=== PATIENT | female | born 1990 | race American Indian/Alaskan Native ===

== ENCOUNTER 2019-03-30 22:56 | Outpatient (CLI) | payer MEDICAID ==
[2019-03-30 23:40] VITALS: BP 118/81
== END 2019-03-31 01:42 | disposition home or self-care (01) ==
LOC: TRG 22:56
PROVIDERS: ATTEND Obstetrics & Gynecology
DX: O47.1 False labor at or after 37 completed weeks of gestation (principal); O99.513 Diseases of the respiratory system complicating pregnancy, third trimester; J45.909 Unspecified asthma, uncomplicated; Z3A.39 39 weeks gestation of pregnancy
CPT/HCPCS: 59025

== ENCOUNTER 2019-04-04 19:41 | Outpatient (CLI) | payer MEDICAID ==
[2019-04-04 22:56] LABS: Hematocrit 34.1 % (30.3-42.9); Hemoglobin 11.4 gm/dl (10.1-14.3); Mean Corpuscular HGB Conc 33 % (30-34); Mean Corpuscular Volume 79 fl (79-97); Platelet Count 163 K/mm3 (140-440); Red Blood Count 4.32 M/mm3 (3.65-5.03); Red Cell Distribution Width 15.3 % (13.2-15.2)
[2019-04-04 23:08] LABS: Alanine Aminotransferase 6 units/L (7-56)
[2019-04-05] MEDS ORDERED: TYLENOL PO ONE (00:05)
[2019-04-05 00:48] VITALS: BP 115/81
[2019-04-05 01:35] LABS: Uric Acid 3.8 mg/dL (3.5-7.6)
== END 2019-04-05 00:40 | disposition home or self-care (01) ==
LOC: TRG 19:41
PROVIDERS: ATTEND Obstetrics & Gynecology
DX: O47.03 False labor before 37 completed weeks of gestation, third trimester (principal); Z3A.37 37 weeks gestation of pregnancy
CPT/HCPCS: 36415; 82565; 83615; 84450; 84460; 84550; 85027

== ENCOUNTER 2019-04-07 21:05 | Inpatient (IN) | payer MEDICAID ==
[2019-04-07] MEDS ORDERED: XYLOCAINE 2% INFILTRATI ONE (22:59)
[2019-04-07] MEDS ORDERED: STADOL IV PRN (22:59)
[2019-04-07] MEDS ORDERED: BRETHINE IVP PRN (22:59)
[2019-04-07] MEDS ORDERED: MINERAL OIL PO PRN (22:59)
[2019-04-07] MEDS ORDERED: ZOFRAN IV PRN (22:59)
[2019-04-07] MEDS ORDERED: BRETHINE SUB-Q PRN (22:59)
[2019-04-07 23:11] LABS: Hematocrit 33.8 % (30.3-42.9); Hemoglobin 11.2 gm/dl (10.1-14.3); Mean Corpuscular HGB Conc 33 % (30-34); Mean Corpuscular Volume 80 fl (79-97); Platelet Count 158 K/mm3 (140-440); Red Blood Count 4.24 M/mm3 (3.65-5.03); Red Cell Distribution Width 14.8 % (13.2-15.2)
[2019-04-07] MEDS ORDERED: CERVIDIL VG ONE (23:34)
[2019-04-07] MEDS ORDERED: AMPICILLIN/NS 2 GM/100 ML 2 GM/100 ML BAG IV ONE (23:35)
[2019-04-08] MEDS: LACTATED RINGERS 1,000 ML IV SCH ×2 (02:00→13:29)
[2019-04-08] MEDS: SUBLIMAZE IV PRN ×2 (06:35→08:41)
--- NOTE | 2019-04-08 08:49 | History and Physical Report ---
History of Present Illness Date of examination: 04/08/19 Date of admission: 04/07/19 21:05 Chief complaint: IOL secondary to PIH History of present illness: 28yo, @ 37.5 wks gestation who initiated care with [facility] at 11.3 wks gestation. She was co-managed by [facility]. Her was complicated by morbid obesity, CHTN, Vit D deficiency, Trichomonas (treated on 03/20/19, no JOHN noted in chart) and GBS positive status. Labs: B positive, antibody screen negative; Rubella immune; VDRL non-reactive; HBsAg negative; HIV negative; HIV negative; Varicella immune; HSV-2 positive; GC/Chlamydia negative; 1 hr Gtt: 137; GBS positive. Past History Past Medical History: hypertension (Taking Labetalol 200 mg QD), other (Morbid obesity - BMI 43) - Obstetrical History : 9 Medications and Allergies Allergies Allergy/AdvReac Type Severity Reaction Status Date / Time No Known Allergies Allergy Unverified 06/13/13 02:18 Home Medications Medication Instructions Recorded Confirmed Last Taken Type Vits96/Iron Fum/Folic 1 each PO QDAY #30 tablet 06/13/13 04/07/19 2 Months Ago Rx [ Tablet] ~02/05/19 valACYclovir [Valtrex] 500 mg PO DAILY 04/07/19 04/07/19 04/07/19 History Active Meds: Active Medications Butorphanol Tartrate (Stadol) 2 mg IV Q2H PRN PRN Reason: Pain , Severe (7-10) Ephedrine Sulfate (Ephedrine Sulfate) 10 mg IV Q2M PRN PRN Reason: Hypotension Fentanyl (Sublimaze) 100 mcg IV Q2H PRN PRN Reason: Labor Pain Last Admin: 04/08/19 08:41 Dose: 100 mcg Documented by: Oxytocin/Sodium Chloride (Pitocin/Ns 20 Unit/1000ml Drip) 20 units in 1,000 mls @ 125 mls/hr IV DIRECT PHIL Lactated Ringer's (Lactated Ringers) 1,000 mls @ 125 mls/hr IV DIRECT PHIL Last Admin: 04/08/19 02:00 Dose: 125 mls/hr Documented by: Mineral Oil (Mineral Oil) 30 ml PO QHS PRN PRN Reason: Constipation Ondansetron HCl (Zofran) 4 mg IV Q8H PRN PRN Reason: Nausea And Vomiting Terbutaline Sulfate (Brethine) 0.25 mg SUB-Q ONCE PRN PRN Reason: Hyperstimulation/Hypertonicity Terbutaline Sulfate (Brethine) 0.25 mg IVP ONCE PRN PRN Reason: Hyperstimulation/Hypertonicity - Vital Signs Vital signs: Vital Signs Temp Pulse BP 98.7 F 95 H 116/62 04/07/19 22:15 04/07/19 22:15 04/07/19 22:15 Temp Pulse Resp BP Pulse Ox 97.5 F L 85 110/55 04/08/19 08:17 04/08/19 08:07 04/08/19 08:07 Results Result Diagrams: 04/07/19 22:20 Abnormal lab results 04/07/19 Range/Units 22:20 MCH 27 L (28-32) pg All other labs normal.
[2019-04-08] MEDS ORDERED: PITOCin/NS 30 UNIT/500ML 30,000 MILLIUNITS/500 ML BAG IV ONE (09:17)
--- NOTE | 2019-04-08 09:28 | Progress Note ---
Assessment and Plan - Patient Problems (1) Encounter for induction of labor Current Visit: Yes Status: Acute Plan to address problem: Continue routine labor orders Remove cervidil Start Pitocin augmentation 30 mins after Cervidil removed Epidural as desired Anticipate (2) BMI 40.0-44.9, adult Current Visit: Yes Status: Acute (3) Chronic hypertension Current Visit: Yes Status: Acute Plan to address problem: Monitor B/P per policy Notify provider for B/P > 160/110 Subjective - Subjective Date of service: 04/08/19 Principal diagnosis: IOL secondary to CHTN Interval history: Presented to [facility] on 04/07/19 for IOL Patient reports: new complaints (Reports that she does feel her ctxs and would like to have an epidural when possible), movement normal, contractions, no loss of fluid, no vaginal bleeding Objective - Vital Signs Vital Signs: Vital Signs - 12hr 04/07/19 04/08/19 04/08/19 22:15 02:06 03:07 Temperature 98.7 F Pulse Rate 95 H 96 H 85 Blood Pressure 116/62 127/71 109/66 04/08/19 04/08/19 04/08/19 04:07 05:07 06:13 Temperature Pulse Rate 102 H 101 H 96 H Blood Pressure 119/72 105/63 118/56 04/08/19 04/08/19 04/08/19 07:08 08:07 08:17 Temperature 97.5 F L Pulse Rate 85 85 Blood Pressure 119/67 110/55 04/08/19 09:17 Temperature Pulse Rate 87 Blood Pressure 131/71 - Exam Breasts: deferred Cardiovascular: Regular rate Lungs: Normal air movement Abdomen: Present: other (gravid) Uterus: Present: other (S=D) FHR: category 1 Uterine Contraction Monitor Mode: External Cervical Dilatation: 3.5 Cervical Effacement Percentage: 70 station: -2 Uterine Contraction Pattern: Irregular Uterine Tone Measurement Phase: Resting Uterine Contraction Intensity: Moderate Extremities: normal Deep Tendon Reflex Grade: Normal +2 - Labs Labs: Abnormal Labs 04/07/19 22:20 MCH 27 L Laboratory Results - last 24 hr 04/07/19 04/08/19 22:20 00:22 WBC 10.3 RBC 4.24 Hgb 11.2 Hct 33.8 MCV 80 MCH 27 L MCHC 33 RDW 14.8 Plt Count 158 Blood Type B POSITIVE Antibody Screen Negative
[2019-04-08] MEDS ORDERED: AMPICILLIN/NS 2 GM/100 ML 2 GM/100 ML BAG IV ONE (10:00)
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
[2019-04-08] MEDS ORDERED: NARCAN 2 MG/2 ML IV PRN (11:42)
--- NOTE | 2019-04-08 12:26 | Anesthesia Consultation ---
Anesthesia Consult and Med Hx Date of service: 04/08/19 - Airway Anesthetic Teeth Evaluation: Good ROM Head & Neck: Adequate Mental/Hyoid Distance: Adequate Mallampati Class: Class III Intubation Access Assessment: Probably Good - Pulmonary Exam CTA: Yes - Cardiac Exam Cardiac Exam: RRR - Pre-Operative Health Status ASA Pre-Surgery Classification: ASA3 Proposed Anesthetic Plan: Epidural - Pulmonary Hx Smoking: No Hx Asthma: Yes (last attack yaers ago) Hx Respiratory Symptoms: No SOB: No COPD: No Home Oxygen Therapy: No Hx Pneumonia: Yes (as a child) Hx Sleep Apnea: No - Cardiovascular System Hx Hypertension: Yes (PIH) Hx Coronary Artery Disease: No Hx Heart Attack/AMI: No Hx Angina: No Hx Percutaneous Transluminal Coronary Angioplasty (PTCA): No Hx Cardia Arrhythmia: No Hx Pacemaker: No Hx Internal Defibrillator: No Hx Valvular Heart Disease: No Hx Heart Murmur: No Hx Peripheral Vascular Disease: No - Central Nervous System Hx Neuromuscular Disorder: No Hx Seizures: No CVA: No Hx Back Pain: Yes Hx Psychiatric Problems: No - Gastrointestinal Hx Ulcer: No Hx Gastroesophageal Reflux Disease: Yes - Endocrine Hx Renal Disease: No Hx End Stage Renal Disease: No Hx Cirrhosis: No Hx Liver Disease: No Hx Insulin Dependent Diabetes: No Hx Non-Insulin Dependent Diabetes: No Hx Thyroid Disease: No Hx Hypothyroidism: No Hx Hyperthyroidism: No - Hematic Hx Anemia: No Hx Sickle Cell Disease: No - Other Systems Hx Alcohol Use: No Hx Substance Use: No Hx Cancer: No Hx Obesity: Yes (BMI 39.1)
[2019-04-08] MEDS: fentaNYL-BUPIV 2 MCG/ML-0.125% 200 MCG/100 ML BAG EPIDURAL SCH ×2 (12:42→21:07)
[2019-04-08] MEDS ORDERED: AMPICILLIN/NS 1 GM/50 ML 1 GM/50 ML BAG IV SCH (17:05)
[2019-04-08 17:14] LABS: Partial Thromboplastin Time 22.9 Sec. (24.2-36.6)
--- NOTE | 2019-04-08 20:04 | Progress Note ---
Assessment and Plan - Patient Problems (1) Encounter for induction of labor Current Visit: Yes Status: Acute Plan to address problem: Continue routine labor orders Continue Pitocin augmentation as tolerated Anticipate (2) BMI 40.0-44.9, adult Current Visit: Yes Status: Acute (3) Chronic hypertension Current Visit: Yes Status: Acute (4) Artific rupt membran-unsp Current Visit: Yes Status: Acute Plan to address problem: AROM at 1942, clear fluids without abnormal odor, tolerated well Check temps q h Subjective - Subjective Date of service: 04/08/19 Principal diagnosis: IOL secondary to CHTN Interval history: See admission H & P and OB progress notes Patient reports: new complaints (Comfortable with epidural but is able to feel ctxs), movement normal, contractions, no loss of fluid, no vaginal bleeding Objective - Vital Signs Vital Signs: Vital Signs - 12hr 04/08/19 04/08/19 04/08/19 08:07 08:17 09:17 Temperature 97.5 F L Pulse Rate 85 87 Respiratory Rate Blood Pressure 110/55 131/71 Blood Pressure [Left] O2 Sat by Pulse Oximetry 04/08/19 04/08/19 04/08/19 09:48 10:18 10:48 Temperature Pulse Rate 81 83 89 Respiratory Rate Blood Pressure 137/80 121/73 133/76 Blood Pressure [Left] O2 Sat by Pulse Oximetry 04/08/19 04/08/19 04/08/19 11:18 11:23 11:28 Temperature Pulse Rate 96 H 83 93 H Respiratory Rate Blood Pressure 135/64 Blood Pressure [Left] O2 Sat by Pulse 96 97 97 Oximetry 04/08/19 04/08/19 04/08/19 11:33 11:38 11:43 Temperature Pulse Rate 90 88 90 Respiratory Rate Blood Pressure Blood Pressure [Left] O2 Sat by Pulse 98 98 97 Oximetry 04/08/19 04/08/19 04/08/19 11:45 11:47 11:48 Temperature Pulse Rate 102 H 88 89 Respiratory Rate Blood Pressure 135/72 Blood Pressure [Left] O2 Sat by Pulse 94 97 Oximetry 04/08/19 04/08/19 04/08/19 11:53 11:58 12:01 Temperature Pulse Rate 103 H 96 H 95 H Respiratory Rate Blood Pressure 135/79 Blood Pressure [Left] O2 Sat by Pulse 99 98 Oximetry 04/08/19 04/08/19 04/08/19 12:03 12:07 12:08 Temperature Pulse Rate 100 H 98 H 103 H Respiratory Rate Blood Pressure 135/95 Blood Pressure [Left] O2 Sat by Pulse 98 93 95 Oximetry 04/08/19 04/08/19 04/08/19 12:13 12:16 12:17 Temperature 98.4 F Pulse Rate 112 H 100 H Respiratory Rate Blood Pressure 107/63 117/68 Blood Pressure [Left] O2 Sat by Pulse 98 Oximetry 04/08/19 04/08/19 04/08/19 12:18 12:22 12:23 Temperature 98.4 F Pulse Rate 112 H 96 H Respiratory Rate Blood Pressure Blood Pressure [Left] O2 Sat by Pulse 97 97 Oximetry 04/08/19 04/08/19 04/08/19 12:28 12:33 12:38 Temperature Pulse Rate 102 H 94 H 107 H Respiratory Rate Blood Pressure Blood Pressure [Left] O2 Sat by Pulse 96 97 96 Oximetry 04/08/19 04/08/19 04/08/19 12:41 12:43 12:48 Temperature Pulse Rate 106 H 95 H 96 H Respiratory Rate Blood Pressure 115/78 Blood Pressure [Left] O2 Sat by Pulse 93 98 100 Oximetry 04/08/19 04/08/19 04/08/19 12:53 12:56 12:58 Temperature Pulse Rate 91 H 47 L 85 Respiratory Rate Blood Pressure Blood Pressure [Left] O2 Sat by Pulse 98 87 99 Oximetry 04/08/19 04/08/19 04/08/19 13:03 13:08 13:13 Temperature Pulse Rate 99 H 93 H 87 Respiratory Rate Blood Pressure Blood Pressure [Left] O2 Sat by Pulse 98 99 99 Oximetry 04/08/19 04/08/19 04/08/19 13:18 13:23 13:28 Temperature Pulse Rate 87 83 88 Respiratory Rate Blood Pressure 130/58 Blood Pressure [Left] O2 Sat by Pulse 99 99 99 Oximetry 04/08/19 04/08/19 04/08/19 13:33 13:37 13:38 Temperature Pulse Rate 87 107 H 86 Respiratory Rate Blood Pressure Blood Pressure [Left] O2 Sat by Pulse 96 90 98 Oximetry 04/08/19 04/08/19 04/08/19 13:43 13:47 13:48 Temperature Pulse Rate 88 91 H 93 H Respiratory Rate Blood Pressure 112/57 Blood Pressure [Left] O2 Sat by Pulse 98 92 100 Oximetry 04/08/19 04/08/19 04/08/19 13:52 13:53 13:58 Temperature Pulse Rate 84 90 86 Respiratory Rate Blood Pressure Blood Pressure [Left] O2 Sat by Pulse 93 96 98 Oximetry 04/08/19 04/08/19 04/08/19 14:03 14:08 14:13 Temperature Pulse Rate 84 91 H 87 Respiratory Rate Blood Pressure Blood Pressure [Left] O2 Sat by Pulse 99 97 98 Oximetry 04/08/19 04/08/19 04/08/19 14:18 14:23 14:28 Temperature Pulse Rate 86 83 93 H Respiratory Rate Blood Pressure 104/59 Blood Pressure [Left] O2 Sat by Pulse 98 98 99 Oximetry 04/08/19 04/08/19 04/08/19 14:33 14:38 14:43 Temperature Pulse Rate 84 93 H 88 Respiratory Rate Blood Pressure Blood Pressure [Left] O2 Sat by Pulse 97 98 97 Oximetry 04/08/19 04/08/19 04/08/19 14:48 14:53 14:58 Temperature Pulse Rate 86 93 H 92 H Respiratory Rate Blood Pressure 106/53 Blood Pressure [Left] O2 Sat by Pulse 98 98 98 Oximetry 04/08/19 04/08/19 04/08/19 15:02 15:03 15:08 Temperature Pulse Rate 90 88 113 H Respiratory Rate Blood Pressure Blood Pressure [Left] O2 Sat by Pulse 93 95 97 Oximetry 04/08/19 04/08/19 04/08/19 15:13 15:18 15:23 Temperature Pulse Rate 86 87 84 Respiratory Rate Blood Pressure 114/58 Blood Pressure [Left] O2 Sat by Pulse 97 98 99 Oximetry 04/08/19 04/08/19 04/08/19 15:28 15:33 15:38 Temperature Pulse Rate 93 H 85 87 Respiratory Rate Blood Pressure Blood Pressure [Left] O2 Sat by Pulse 98 98 98 Oximetry 04/08/19 04/08/19 04/08/19 15:43 15:48 15:49 Temperature Pulse Rate 80 85 82 Respiratory Rate Blood Pressure 111/55 Blood Pressure [Left] O2 Sat by Pulse 98 97 94 Oximetry 04/08/19 04/08/19 04/08/19 15:53 15:58 16:03 Temperature Pulse Rate 85 84 80 Respiratory Rate Blood Pressure Blood Pressure [Left] O2 Sat by Pulse 96 99 99 Oximetry 04/08/19 04/08/19 04/08/19 16:08 16:13 16:19 Temperature Pulse Rate 94 H 86 86 Respiratory Rate Blood Pressure 126/71 Blood Pressure [Left] O2 Sat by Pulse 100 98 97 Oximetry 04/08/19 04/08/19 04/08/19 16:24 16:25 16:30 Temperature Pulse Rate 94 H 77 81 Respiratory Rate Blood Pressure Blood Pressure [Left] O2 Sat by Pulse 78 L 99 98 Oximetry 04/08/19 04/08/19 04/08/19 16:35 16:50 16:55 Temperature Pulse Rate 82 83 89 Respiratory Rate Blood Pressure Blood Pressure [Left] O2 Sat by Pulse 96 94 97 Oximetry 04/08/19 04/08/19 04/08/19 17:00 17:05 17:10 Temperature Pulse Rate 79 86 83 Respiratory Rate Blood Pressure Blood Pressure [Left] O2 Sat by Pulse 97 97 98 Oximetry 04/08/19 04/08/19 04/08/19 17:15 17:18 17:20 Temperature Pulse Rate 82 83 80 Respiratory Rate Blood Pressure 122/58 Blood Pressure [Left] O2 Sat by Pulse 98 98 Oximetry 04/08/19 04/08/19 04/08/19 17:25 17:30 17:35 Temperature Pulse Rate 87 103 H 81 Respiratory Rate Blood Pressure Blood Pressure [Left] O2 Sat by Pulse 98 97 98 Oximetry 04/08/19 04/08/19 04/08/19 17:40 17:45 17:48 Temperature Pulse Rate 81 86 84 Respiratory Rate Blood Pressure 121/65 Blood Pressure [Left] O2 Sat by Pulse 97 96 Oximetry 04/08/19 04/08/19 04/08/19 17:53 17:58 18:03 Temperature Pulse Rate 96 H 76 78 Respiratory Rate Blood Pressure Blood Pressure [Left] O2 Sat by Pulse 97 96 95 Oximetry 04/08/19 04/08/19 04/08/19 18:04 18:08 18:13 Temperature Pulse Rate 87 83 87 Respiratory Rate Blood Pressure Blood Pressure [Left] O2 Sat by Pulse 89 96 96 Oximetry 04/08/19 04/08/19 04/08/19 18:18 18:19 18:22 Temperature 98.3 F Pulse Rate 83 77 Respiratory Rate Blood Pressure 114/69 Blood Pressure [Left] O2 Sat by Pulse 96 93 Oximetry 04/08/19 04/08/19 04/08/19 18:23 18:25 18:28 Temperature Pulse Rate 79 78 83 Respiratory Rate Blood Pressure Blood Pressure [Left] O2 Sat by Pulse 94 94 96 Oximetry 04/08/19 04/08/19 04/08/19 18:32 18:33 18:38 Temperature Pulse Rate 79 92 H 92 H Respiratory Rate Blood Pressure Blood Pressure [Left] O2 Sat by Pulse 94 95 96 Oximetry 04/08/19 04/08/19 04/08/19 18:43 18:45 18:48 Temperature Pulse Rate 93 H 78 114 H Respiratory Rate Blood Pressure 115/69 Blood Pressure [Left] O2 Sat by Pulse 96 94 93 Oximetry 04/08/19 04/08/19 04/08/19 18:50 18:53 18:58 Temperature Pulse Rate 83 88 87 Respiratory Rate Blood Pressure Blood Pressure [Left] O2 Sat by Pulse 93 96 96 Oximetry 04/08/19 04/08/19 04/08/19 19:01 19:03 19:08 Temperature Pulse Rate 87 99 H 82 Respiratory Rate Blood Pressure Blood Pressure [Left] O2 Sat by Pulse 94 96 94 Oximetry 04/08/19 04/08/19 04/08/19 19:10 19:13 19:14 Temperature 98 F Pulse Rate 82 82 89 Respiratory 21 Rate Blood Pressure Blood Pressure 115/69 [Left] O2 Sat by Pulse 94 94 94 Oximetry 04/08/19 04/08/19 04/08/19 19:18 19:21 19:23 Temperature Pulse Rate 85 88 90 Respiratory Rate Blood Pressure 118/65 Blood Pressure [Left] O2 Sat by Pulse 96 94 95 Oximetry 04/08/19 04/08/19 04/08/19 19:28 19:33 19:38 Temperature Pulse Rate 80 87 88 Respiratory Rate Blood Pressure Blood Pressure [Left] O2 Sat by Pulse 97 97 97 Oximetry 04/08/19 04/08/19 04/08/19 19:43 19:48 19:49 Temperature Pulse Rate 83 82 77 Respiratory Rate Blood Pressure 117/67 Blood Pressure [Left] O2 Sat by Pulse 97 97 Oximetry 04/08/19 04/08/19 19:53 19:58 Temperature Pulse Rate 84 80 Respiratory Rate Blood Pressure Blood Pressure [Left] O2 Sat by Pulse 97 97 Oximetry - Exam Breasts: deferred Cardiovascular: Regular rate Lungs: Normal air movement Abdomen: Present: other (gravid) Uterus: Present: other (S=D) FHR: category 1 FHR comments: FSE placed without difficulty Uterine Contraction Monitor Mode: External Cervical Dilatation: 5.5 Cervical Effacement Percentage: 70 station: -1 Uterine Contraction Frequency (min): 2-4 Uterine Contraction Pattern: Irregular Uterine Tone Measurement Phase: Resting Uterine Contraction Intensity: Moderate Extremities: normal Deep Tendon Reflex Grade: Normal +2 - Labs Labs: Abnormal Labs 04/07/19 04/08/19 22:20 16:52 MCH 27 L APTT 22.9 L D-Dimer 539.89 H Laboratory Results - last 24 hr 04/07/19 04/07/19 04/08/19 22:20 22:20 00:22 WBC 10.3 RBC 4.24 Hgb 11.2 Hct 33.8 MCV 80 MCH 27 L MCHC 33 RDW 14.8 Plt Count 158 PT INR APTT D-Dimer RPR Nonreactive Blood Type B POSITIVE Antibody Screen Negative 04/08/19 16:52 WBC RBC Hgb Hct MCV MCH MCHC RDW Plt Count PT 12.9 INR 1.00 APTT 22.9 L D-Dimer 539.89 H RPR Blood Type Antibody Screen
[2019-04-08] MEDS ORDERED: MARCAINE 0.25% INFILTRATI ONE (20:53)
[2019-04-08] MEDS ORDERED: TUCKS PAD TP PRN (22:20)
[2019-04-08] MEDS ORDERED: LANSINOH TP PRN (22:20)
[2019-04-08] MEDS ORDERED: ZOFRAN IV PRN (22:20)
[2019-04-08] MEDS ORDERED: BENADRYL PO PRN (22:20)
[2019-04-08] MEDS ORDERED: DULCOLAX PR PRN (22:20)
[2019-04-08] MEDS ORDERED: MILK OF MAGNESIA PO PRN (22:20)
[2019-04-08] MEDS ORDERED: PHENERGAN PO PRN (22:20)
--- NOTE | 2019-04-08 22:29 | Procedure Note ---
OB Delivery Note - Delivery Date of Delivery: 04/08/19 (2202) Surgeon: MULU CABA (CNM) Estimated blood loss: <100cc - Vaginal Delivery presentation: vertex Delivery position: OA (CLAUDETTE) Intrapartum events: none Delivery induction: oxytocin Delivery augmentation: rupture of membranes (1941), pitocin Delivery monitor: internal FHT Route of delivery: Delivery placenta: spontaneous (2207) Delivery cord: nuchal cord (x1, summersaulted through), 3 umbilical vessels Episiotomy: none Delivery laceration: none Delivery comments: of viable, crying female , placed directly to maternal abdomen. Cord double clamped and cut by FOB after cessation of pulsation. Placenta spontaneously delivered, mazariegos, disposed per hospital policy. Perinuem intact. Fundus firm @ U, hemostasis maintained. Mother and baby safe, stable and bonding well. - Infant A at 1 minute: 8 at 5 minutes: 9 Gender: Female (Weight: 3274 gms (7lbs 3ozs) 19.5 inches)
[2019-04-08] MEDS: PITOCin/NS 20 UNIT/1000ML DRIP 20 UNITS/1,000 ML BAG IV SCH (22:33)
[2019-04-08] MEDS ORDERED: SODIUM CHLORIDE FLUSH SYRINGE 10 ML IV PRN (23:00)
[2019-04-09] MEDS: PITOCin/NS 20 UNIT/1000ML DRIP 20 UNITS/1,000 ML BAG IV SCH (00:02)
[2019-04-09] MEDS: PERCOCET 5/325 PO PRN ×3 (01:29→17:31)
[2019-04-09] MEDS: IBUPROFEN PO SCH ×2 (08:41→15:03)
[2019-04-09] MEDS: PRENATAL VITAMIN PO SCH (10:13)
[2019-04-09 10:31] LABS: Hematocrit 32.8 % (30.3-42.9)
--- NOTE | 2019-04-09 12:49 | Progress Note ---
Assessment and Plan - Patient Problems (1) BMI 40.0-44.9, adult Current Visit: Yes Status: Acute (2) Chronic hypertension Current Visit: Yes Status: Acute Plan to address problem: B/P stable since delivery Monitor B/P per policy Notify provider for B/P > 160/110 (3) (normal spontaneous vaginal delivery) Current Visit: Yes Status: Acute Plan to address problem: Continue routine PP orders Anticipate d/c home tomorrow Subjective - Subjective Date of service: 04/09/19 Principal diagnosis: Interval history: See admission H & P and OB delivery summary Patient reports: appetite normal, voiding normally, pain well controlled, flatus, ambulating normally, no bowel movement : doing well (), bottle feeding Objective - Vital Signs Latest vital signs: Vital Signs Temp Pulse Resp BP BP Pulse Ox 04/09/19 08:05 98.2 F 101 H 20 124/71 04/09/19 04:36 98.6 F 98 H 20 124/75 85 04/09/19 00:45 98 F 95 H 18 115/79 96 04/09/19 00:05 96 H 77 L 04/09/19 00:01 73 L 04/08/19 23:49 66 L 04/08/19 23:40 60 L 04/08/19 23:35 95 H 94 04/08/19 23:34 93 H 96 04/08/19 23:33 90 124/78 04/08/19 23:29 56 L 84 04/08/19 23:28 84 04/08/19 23:24 96 H 98 04/08/19 23:19 98 H 95 04/08/19 23:18 102 H 132/73 04/08/19 23:14 70 87 04/08/19 23:09 88 98 04/08/19 23:04 92 H 88 04/08/19 23:02 190 H 125/65 04/08/19 22:59 87 79 L 04/08/19 22:55 41 L 90 04/08/19 22:53 92 H 96 04/08/19 22:49 70 82 L 04/08/19 22:48 86 118/57 98 04/08/19 22:43 81 L 04/08/19 22:42 40 L 85 04/08/19 22:38 79 L 04/08/19 22:36 91 H 96 04/08/19 22:33 69 128/72 83 L 04/08/19 22:30 92 H 98 04/08/19 22:25 76 83 L 04/08/19 22:24 84 100 04/08/19 22:22 98.0 F 88 18 120/58 04/08/19 22:19 76 87 04/08/19 22:13 79 L 04/08/19 22:10 94 H 96 04/08/19 22:03 101 H 76 L 04/08/19 22:01 114 H 89 04/08/19 21:58 92 H 100 04/08/19 21:56 71 82 L 04/08/19 21:53 83 100 04/08/19 21:48 101 H 120/58 100 04/08/19 21:43 80 100 04/08/19 21:38 104 H 100 04/08/19 21:33 85 100 04/08/19 21:28 91 H 98 04/08/19 21:26 93 H 88 04/08/19 21:23 102 H 96 04/08/19 21:19 78 94 04/08/19 21:18 91 H 95 04/08/19 21:13 117 H 98 04/08/19 21:08 90 98 04/08/19 21:04 86 92 04/08/19 21:03 85 93 04/08/19 20:58 82 97 04/08/19 20:53 103 H 98 04/08/19 20:48 91 H 116/76 92 04/08/19 20:43 90 100 04/08/19 20:38 89 100 04/08/19 20:33 96 H 98 04/08/19 20:28 85 99 04/08/19 20:23 98 H 98 04/08/19 20:18 86 123/71 97 04/08/19 20:13 90 96 04/08/19 20:08 86 96 04/08/19 20:03 95 H 98 04/08/19 20:01 103 H 85 04/08/19 19:58 80 97 04/08/19 19:53 84 97 04/08/19 19:49 77 117/67 04/08/19 19:48 82 97 04/08/19 19:43 83 97 04/08/19 19:38 88 97 04/08/19 19:33 87 97 04/08/19 19:28 80 97 04/08/19 19:23 90 95 04/08/19 19:21 88 94 04/08/19 19:18 85 118/65 96 04/08/19 19:14 89 94 04/08/19 19:13 82 94 04/08/19 19:10 98 F 82 21 115/69 94 04/08/19 19:08 82 94 04/08/19 19:03 99 H 96 04/08/19 19:01 87 94 04/08/19 18:58 87 96 04/08/19 18:53 88 96 04/08/19 18:50 83 93 04/08/19 18:48 114 H 115/69 93 04/08/19 18:45 78 94 04/08/19 18:43 93 H 96 04/08/19 18:38 92 H 96 04/08/19 18:33 92 H 95 04/08/19 18:32 79 94 04/08/19 18:28 83 96 04/08/19 18:25 78 94 04/08/19 18:23 79 94 04/08/19 18:22 98.3 F 04/08/19 18:19 77 114/69 93 04/08/19 18:18 83 96 04/08/19 18:13 87 96 04/08/19 18:08 83 96 04/08/19 18:04 87 89 04/08/19 18:03 78 95 04/08/19 17:58 76 96 04/08/19 17:53 96 H 97 04/08/19 17:48 84 121/65 04/08/19 17:45 86 96 04/08/19 17:40 81 97 04/08/19 17:35 81 98 04/08/19 17:30 103 H 97 04/08/19 17:25 87 98 04/08/19 17:20 80 98 04/08/19 17:18 83 122/58 04/08/19 17:15 82 98 04/08/19 17:10 83 98 04/08/19 17:05 86 97 04/08/19 17:00 79 97 04/08/19 16:55 89 97 04/08/19 16:50 83 94 04/08/19 16:35 82 96 04/08/19 16:30 81 98 04/08/19 16:25 77 99 04/08/19 16:24 94 H 78 L 04/08/19 16:19 86 126/71 97 04/08/19 16:13 86 98 04/08/19 16:08 94 H 100 04/08/19 16:03 80 99 04/08/19 15:58 84 99 04/08/19 15:53 85 96 04/08/19 15:49 82 111/55 94 04/08/19 15:48 85 97 04/08/19 15:43 80 98 04/08/19 15:38 87 98 04/08/19 15:33 85 98 04/08/19 15:28 93 H 98 04/08/19 15:23 84 99 04/08/19 15:18 87 114/58 98 04/08/19 15:13 86 97 04/08/19 15:08 113 H 97 04/08/19 15:03 88 95 04/08/19 15:02 90 93 04/08/19 14:58 92 H 98 04/08/19 14:53 93 H 98 04/08/19 14:48 86 106/53 98 04/08/19 14:43 88 97 04/08/19 14:38 93 H 98 04/08/19 14:33 84 97 04/08/19 14:28 93 H 99 04/08/19 14:23 83 98 04/08/19 14:18 86 104/59 98 04/08/19 14:13 87 98 04/08/19 14:08 91 H 97 04/08/19 14:03 84 99 04/08/19 13:58 86 98 04/08/19 13:53 90 96 04/08/19 13:52 84 93 04/08/19 13:48 93 H 112/57 100 04/08/19 13:47 91 H 92 04/08/19 13:43 88 98 04/08/19 13:38 86 98 04/08/19 13:37 107 H 90 04/08/19 13:33 87 96 04/08/19 13:28 88 99 04/08/19 13:23 83 99 04/08/19 13:18 87 130/58 99 04/08/19 13:13 87 99 04/08/19 13:08 93 H 99 04/08/19 13:03 99 H 98 04/08/19 12:58 85 99 04/08/19 12:56 47 L 87 04/08/19 12:53 91 H 98 04/08/19 12:48 96 H 115/78 100 Intake and Output 04/08/19 04/09/19 04/09/19 23:59 07:59 15:59 Intake Total 45.7 1265.417 360 Output Total 1550 800 300 Balance -1504.3 465.417 60 Intake: IV 45.7 185.417 PITOCin/NS 20 UNIT/1000ML 185.417 DRIP 20 units In 1,000 ml @ 125 mls/hr IV DIRECT PHIL Rx#:[id number] PITOCin/NS 30 UNIT/500ML 45.7 30,000 milliunits In 500 ml @ 2 MILLIUNITS/MIN 2 mls/hr IV DIRECT ONE Rx#:[id number] Oral 600 360 Intake, Free Water 480 Output: Urine 1550 800 300 Void 1550 800 300 Other: Total, Intake Amount 240 360 Total, Output Amount 1550 800 300 # Voids Void 1 Estimated Blood Loss 100 - Exam Breasts: Present: normal Cardiovascular: Present: Regular rate Lungs: Present: Normal air movement Abdomen: Present: soft, normal bowel sounds Uterus: Present: firm, fundal height below umbilicus (U-1) Extremities: Present: edema (Right hand edema noted) Deep Tendon Reflex Grade: Normal +2 - Labs Labs: Abnormal lab results 04/08/19 Range/Units 16:52 APTT 22.9 L (24.2-36.6) Sec. D-Dimer 539.89 H (0-234) ng/mlDDU
--- NOTE | 2019-04-09 12:52 | Discharge Summary ---
Providers - Providers Date of Admission: 04/07/19 21:05 Date of discharge: 04/10/19 (1200) Attending physician: ROMEL JARRETT MD Primary care physician: ROMEL JARRETT MD Hospitalization Reason for admission: induction of labor (secondary to CHTN) Delivery: Episiotomy: none Laceration: none Other procedures: none complications: none Discharge diagnosis: IUP at term delivered Mil[place] baby: female Hospital course: See admission H & P, OB delivery summary and PP progress notes Condition at discharge: Good Disposition: DC-01 TO HOME OR SELFCARE - Discharge Diagnoses (1) BMI 40.0-44.9, adult Status: Acute (2) Chronic hypertension Status: Acute (3) (normal spontaneous vaginal delivery) Status: Acute Plan - Provider Discharge Summary Activity: routine, no sex for 6 weeks, no heavy lifting 4 weeks, no strenuous exercise Diet: routine Instructions: routine Additional instructions: [] Smoking cessation referral if applicable(refer to patient education folder for contact #) [] Refer to [facility] Booklet Call your doctor immediately for: * Fever > 100.5 * Heavy vaginal bleeding ( >1 pad per hour) * Severe persistent headache * Shortness of breath * Reddened, hot, painful area to leg or breast * Drainage or odor from incision. - Follow up plan Follow up: ROMEL JARRETT MD [Primary Care Provider] - 6 Weeks
[2019-04-10] MEDS: PERCOCET 5/325 PO PRN ×3 (03:24→17:46)
[2019-04-10] MEDS: IBUPROFEN PO SCH ×6 (03:24→17:46)
[2019-04-10] MEDS: PRENATAL VITAMIN PO SCH (09:24)
[2019-04-10 20:58] VITALS: BP 115/63
== END 2019-04-10 21:05 | disposition home or self-care (01) | DRG 774 ==
LOC: LD 21:05 → OB 04-09 00:37
PROVIDERS: ADMIT Obstetrics & Gynecology; ATTEND Obstetrics & Gynecology
PROC: 10E0XZZ Delivery of Products of Conception, External Approach (ICD-10-PCS; principal; 2019-04-08)
PROC: 10907ZC Drainage of Amniotic Fluid, Therapeutic from Products of Conception, Via Natural or Artificial Opening (ICD-10-PCS; 2019-04-08)
PROC: 3E033VJ Introduction of Other Hormone into Peripheral Vein, Percutaneous Approach (ICD-10-PCS; 2019-04-08)
DX: O10.92 Unspecified pre-existing hypertension complicating childbirth (principal); O99.214 Obesity complicating childbirth; E66.01 Morbid (severe) obesity due to excess calories; O99.824 Streptococcus B carrier state complicating childbirth; O99.52 Diseases of the respiratory system complicating childbirth; O99.62 Diseases of the digestive system complicating childbirth; O69.81X0 Labor and delivery complicated by cord around neck, without compression, not applicable or unspecified; K21.9 Gastro-esophageal reflux disease without esophagitis; J45.909 Unspecified asthma, uncomplicated; Z3A.37 37 weeks gestation of pregnancy; Z37.0 Single live birth
CPT/HCPCS: 36415; 59200; 85014; 85018; 85027; 85379; 85610; 85730; 86592; 86850; 86900; 86901; 87210; 93005; 93010; G0378; A6250; J0290; J2405; J2590; J3010; J7120